=== PATIENT | male | born 2000 ===

== ENCOUNTER 2021-08-15 17:48 | Emergency (ER) | payer BC ==
[2021-08-15 18:01] VITALS: BP 143/90
[2021-08-15] MEDS ORDERED: SODIUM CHLORIDE 0.9% 1000 ML 1,000 ML IV ONE (18:01)
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
[2021-08-15] MEDS ORDERED: SODIUM CHLORIDE 0.9% 1000 ML 1,000 ML ONE (18:26)
[2021-08-15 18:33] LABS: Hematocrit 49.2 % (30.3-42.9); Hemoglobin 16.6 gm/dl (10.1-14.3); Mean Corpuscular HGB Conc 34 % (30-34); Mean Corpuscular Volume 89 fl (79-97); Platelet Count 285 K/mm3 (140-440); Red Cell Distribution Width 13.1 % (13.2-15.2)
[2021-08-15 18:49] LABS: BUN/Creatinine Ratio 20; Blood Urea Nitrogen 16 mg/dL (7-17); Calcium 9.6 mg/dL (8.4-10.2); Hemolysis Index 162
--- NOTE | 2021-08-15 19:03 | XRay Report ---
CHEST 2 VIEWS INDICATION / CLINICAL INFORMATION: cp. Mid chest pain, stabbing, comes/goes, worse with standing, sit ting up. s/s x 2 days. COMPARISON: None available. FINDINGS: SUPPORT DEVICES: None. HEART / MEDIASTINUM: No significant abnormality. LUNGS / PLEURA: No significant pulmonary or pleural abnormality. No pneumothorax. ADDITIONAL FINDINGS: No significant additional findings. IMPRESSION: 1. No acute findings. Signer Name: Alonso Conte MD Signed: 08/15/2021 6:58 PM Workstation Name: [id number]
--- NOTE | 2021-08-16 09:55 | Electrocardiograph Report ---
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
== END 2021-08-15 20:39 | disposition home or self-care (01) ==
LOC: ED 17:48 → EDSEX 17:48 → ED 20:39
DX: S00.33XA Contusion of nose, initial encounter (principal); R55 Syncope and collapse; X58.XXXA Exposure to other specified factors, initial encounter; Y93.89 Activity, other specified; Y92.89 Other specified places as the place of occurrence of the external cause; Y99.8 Other external cause status
CPT/HCPCS: 36415; 71046; 80048; 85027; 93005; 96360; 99284; J7030; Q0162